=== PATIENT | male | born 1960 | race Caucasian/White ===

== ENCOUNTER 2022-03-31 13:19 | Emergency (ER) | payer MEDICARE, SELFPAY ==
[2022-03-31 14:45] VITALS: BP 121/75; PULSE 105; RESP 15; TEMP 37.4; O2SAT 95; BMI 32.5
--- NOTE | 2022-03-31 15:09 | ED_ITS ---
HPI - Wound/Laceration General: Chief Complaint: Wound/Laceration Stated Complaint: Spider bite, left leg Time Seen by Provider: 03/31/22 14:52 History of Present Illness: Patient is a 61-year-old male comes in the ED with a spider bite on left leg. Spider bite occurred approximately 2 days ago. He felt stinging pain on his left thigh and then looked down and he saw a red stevo on his skin. Over the last 2 days it formed a blister that he then ruptured blister by poking it. Skin is continued to ulcerate in the center of wound and he has some circular redness with warmth surrounding ulcer. Wound is tender to the touch. Associated symptoms: Denies chills, fever(s), nausea or vomiting Review of Systems Const: Denies: fever(s), chills or fatigue Eyes: Denies: change in vision or eye discomfort ENMT: Denies: throat pain, odynophagia, nasal discharge or nasal congestion Card: Denies: chest pain, palpitations, edema, swelling of feet/ankles, dyspnea on exertion or orthopnea Resp: Denies: dyspnea, productive cough or non-productive cough GI: Denies: abdominal pain, nausea, vomiting, diarrhea, constipation or hematochezia : Denies: flank pain, difficulty urinating, dysuria or hematuria Musc: Denies: neck pain, back pain or extremity swelling Skin/Breast: Reports: new lesions (Spider bite on left thigh); Denies: rash Neuro: Denies: headache(s), numbness in extremities or weakness in extremities [facility] ED PFSH: Medical History No pertinent family history Surgical History No pertinent past surgical history Physical Exam Const: COMMON NORMALS: no acute distress, patient oriented x3 and alert GENERAL APPEARANCE: cooperative and comfortable HENMT: COMMON NORMALS: normocephalic HEAD & SCALP: normocephalic MOUTH: Normal oral and palatal mucosa present THROAT: posterior oropharynx normal and uvula midline Neck/C-Spine: COMMON NORMALS: supple GENERAL: Yes normal visual inspection Resp: COMMON NORMALS: normal respiratory effort, No retractions, No use of accessory muscles and clear to auscultation bilaterally AUSCULTATION: clear to auscultation bilaterally Cardio: COMMON NORMALS: regular rate, regular rhythm, S1 normal heart sound present, S2 normal heart sound present, No gallops present (Cardio), No clicks present (Cardio), No murmurs present (Cardio) and Peripheral pulses 2+ throughout RATE: regular rate RHYTHM: regular rhythm HEART SOUNDS: S1 normal heart sound present and S2 normal heart sound present PERIPHERAL PULSES: Peripheral pulses 2+ throughout GI: COMMON NORMALS: Normal to inspection, nondistended, normoactive bowel sounds present, Soft to palpation, non-tender and no masses PALPATION: Yes Soft to palpation : COMMON NORMALS: Yes no CVA tenderness BLADDER/KIDNEY EXAM: Yes no CVA tenderness Back/Pelvis: COMMON NORMALS: no CVA tenderness Extremity: NARRATIVE EXTREMITY EXAM: Right thigh?small ulcerated wound approximately 1 cm in diameter with some surrounding erythema, warmth and tenderness. Neuro: COMMON NORMALS: patient oriented x3 and moves all extremities SENSORIUM/ORIENTATION: Yes alert Skin: GENERAL SKIN EXAM: dry skin Course Vital Signs: Vital signs: Vital Signs Temperature 99.3 F 03/31/22 14:45 Pulse Rate 102 H 03/31/22 15:48 Respiratory Rate 16 03/31/22 15:48 Blood Pressure 126/78 03/31/22 15:48 Pulse Oximetry 93 03/31/22 15:48 MDM - Wound/Laceration Medical Decision Making Patient is a 61-year-old male comes in the ED with a spider bite on left leg. Spider bite occurred approximately 2 days ago. Right thigh?small ulcerated wound approximately 1 cm in diameter with some surrounding erythema, warmth and tenderness. Vitals are stable. Patient has a spider bite which is likely from [facility]. He was given a dose of Rocephin here in the ED and I placed an order with case management for patient to be referred to wound care clinic for follow-up. Return to ED precautions given. He was discharged home on clindamycin. Return to ED precautions given. Patient is to agree with plan. Discharge Plan Discharge Patient Disposition: Home Clinical Impression: Spider bite Qualifiers: Encounter type: initial encounter Injury intent: accidental or unintentional Qualified Code(s): T63.301A - Toxic effect of unspecified spider venom, accidental (unintentional), initial encounter Condition: Stable Prescriptions: New clindamycin HCl 150 mg capsule 300 mg PO QID 10 Days Qty: 80 0RF Discharge Orders: Discharge ED (Routine); Ordered 03/31/22 Ordered By: Celestine Ortega Discharge Diet: Regular Discharge Activity: Increase activity as tolerated Patient Instructions: Brown Recluse Spider Bite (ED) Activity Restrictions/Additional Instructions: Follow-up with medical provider as directed. Case management should be contacted in the next several days to set up an appointment with wound care for follow-up on spider bite. Apply triple antibiotic ointment on spider bite daily and keep it clean daily with warm soapy water. Take medications as prescribed. Return to the ER or your medical provider if condition worsens. Please read and understand discharge instructions. Thank you for choosing [facility] for your healthcare needs today. Please realize this is an emergency room and that we are providing you with a medical screening exam and this may not be complete and all inclusive of all the testing and or work up that you may need to determine your ailment or severity of your illness. It is very important that you follow up as instructed or that you return to the Emergency Department should you have concerns or if your condition changes or worsens in any way. Coding Level of Care Code ED Pet Crematory Worker for Yared Hanley Exam Comprehensive
[2022-03-31 15:48] VITALS: BP 126/78; PULSE 102; RESP 16; O2SAT 93
[2022-03-31] MEDS: cefTRIAXone 1,000 MG in lidocaine 1% 2.1 ML 2.1 MG IM (15:48)
--- NOTE | 2022-03-31 17:11 | DCPLANNER ---
Addendum entered by Geovanna Bustos 05/01/22 11:03: Patient had a follow up appointment scheduled for 04.04.22 with Wound Care - patient did attend appointment. Original Note: senior project manager had message to schedule a follow up appointment for patient with Wound Care. senior project manager sent patients information to the front office staff at wound care. Patients information will be printed and reviewed. Clinic will call patient with appointment information.
== END 2022-03-31 15:51 | disposition home or self-care (01) ==
PROVIDERS: Emergency Provider Physician Assistant
DX: T63.301A Toxic effect of unspecified spider venom, accidental (unintentional), initial encounter (principal)
CPT/HCPCS: 96372; 99284; J0696

== ENCOUNTER 2022-04-12 21:58 | Emergency (ER) | payer MEDICARE, SELFPAY ==
[2022-04-12 22:17] VITALS: BP 156/100; PULSE 91; RESP 15; TEMP 37.1; O2SAT 95; BMI 29.5
--- NOTE | 2022-04-12 23:56 | W.ED.GENADLT ---
HPI - General Adult General: Chief complaint: General Medical Stated complaint: peeling of hands Time Seen by Provider: 04/12/22 23:42 Source: patient Mode of arrival: ambulatory Limitations: no limitations History of Present Illness: 61-year-old male who states that over the last day has been having some peeling to his hands and appears to be dry skin that is peeling off the palms of his hands. He states he did start clindamycin a few days ago for a spider bite to his left thigh states that the erythema to his left thigh is improved has had no drainage denies any fever denies any rash elsewhere. Associated symptoms: Deny chest pain, dyspnea, headache(s), nausea, rash or vomiting Review of Systems Const: Denies: fever(s), chills, body aches or change in appetite Eyes: Denies: blurry vision or eye discomfort ENMT: Denies: throat pain or dental pain Card: Denies: chest pain Resp: Denies: dyspnea GI: Denies: abdominal pain, nausea, vomiting or diarrhea : Denies: dysuria Musc: Denies: neck pain or back pain Skin/Breast: Denies: rash Neuro: Denies: headache(s) Psych: Denies: depression Wilfredo/Lymph: Denies: easy bruising All/Imm: Denies: urticaria PFSH ED PFSH: Medical History No pertinent family history Surgical History No pertinent past surgical history Physical Exam Const: COMMON NORMALS: no acute distress, patient oriented x3 and healthy appearing HENMT: COMMON NORMALS: normocephalic and atraumatic HEAD & SCALP: normocephalic and atraumatic Eye: COMMON NORMALS: Equal, round and reactive pupils present and EOMs intact bilaterally PUPIL: Yes Equal, round and reactive pupils present Neck/C-Spine: COMMON NORMALS: full ROM and supple Chest: COMMONS NORMALS: normal inspection of the chest and normal palpation of entire chest wall Resp: COMMON NORMALS: normal respiratory effort, No retractions and No use of accessory muscles Cardio: COMMON NORMALS: regular rate, regular rhythm and No murmurs present (Cardio) RATE: regular rate RHYTHM: regular rhythm GI: INSPECTION: Yes normal to inspection Extremity: COMMON NORMALS: normal to inspection and full ROM Neuro: COMMON NORMALS: patient oriented x3, moves all extremities and no focal motor deficits Psych: COMMON NORMALS: mental status grossly normal, Normal thought process present and cooperative THOUGHT PROCESS: Normal thought process present Skin: COMMON NORMALS: no wounds NARRATIVE SKIN EXAM: Dry skin noted to bilateral palms no rashes noted Course Vital Signs: Vital signs: Vital Signs Temperature 98.7 F 04/12/22 22:17 Pulse Rate 91 04/12/22 22:17 Respiratory Rate 15 04/12/22 22:17 Blood Pressure 156/100 04/12/22 22:17 Pulse Oximetry 95 04/12/22 22:17 MDM - General Adult Medical Decision Making Patient presents here with dry skin to his hands he does have some peeling to his hands appears to be from dry skin no other rash noted no signs of drug reaction he is stable for discharge he is return if worsening he understands agrees to plan. Discharge Plan Discharge Patient Disposition: Home Clinical Impression: Dry skin dermatitis Condition: Stable Discharge Orders: Discharge ED (Routine); Ordered 04/12/22 Ordered By: Tyrone Shipley Discharge Diet: Advance as tolerated Discharge Activity: Resume usual activity Patient Instructions: Skin Health Coding Level of Care Code ED Optometric Aide for Yared Hanley
== END 2022-04-13 00:20 | disposition home or self-care (01) ==
PROVIDERS: Emergency Provider Emergency Medicine
DX: L85.3 Xerosis cutis (principal)
CPT/HCPCS: 99281